=== PATIENT | male | born 1990 | race Caucasian/White ===

== ENCOUNTER 2022-06-09 13:45 | Emergency (ER) | payer MEDICAID, OTHER ==
[~2022-06-09] VITALS: Ht 160 cm; Wt 84.0 kg
[2022-06-09 14:03] VITALS: BP 113/76
[2022-06-09] MEDS ORDERED: DEXAMETHASONE 10 MG/ML VIAL IV ONE (15:30)
== END 2022-06-09 16:02 | disposition home or self-care (01) ==
LOC: ER 13:45
DX: J02.9 Acute pharyngitis, unspecified (principal); J34.89 Other specified disorders of nose and nasal sinuses; R06.7 Sneezing; F90.9 Attention-deficit hyperactivity disorder, unspecified type
CPT/HCPCS: 96374; 99283; J1100; Z7610